=== PATIENT | male | born 2000 | race Caucasian/White ===

== ENCOUNTER 2018-01-13 20:57 | Inpatient (IN) | payer OTHER, MEDICAID ==
[~2018-01-13] VITALS: Ht 165.1 cm; Wt 57.2 kg
[~2018-01-13 20:57] MED LIST: GLYCOPYRROLATE 1 MG/5 ML SYRINGE IV PUSH ONE; LACTATED RINGER'S 1000 ML INJ 1,000 ML IV ONE; LIDOCAINE HCL 1% PF 5 ML SYRINGE OTHER ONE; NEOSTIGMINE 5 MG/5 ML SYRINGE IV PUSH ONE; ONDANSETRON HCL 4 MG/2 ML VIAL IV ONE; PROPOFOL 200 MG/20 ML AMP IV ONE; ROCURONIUM INJ 50 MG/5 ML SYRINGE IV PUSH ONE; SUCCINYLCHOLINE CHLORIDE 200 MG/10 ML VIAL IV ONE; ceFAZolin INJ 1,000 MG VIAL IV ONE
[2018-01-13 21:06] VITALS: O2SAT 99
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
[2018-01-13] MEDS ORDERED: IOHEXOL 350 MG/ML 10 ML VIAL (for RAD DIAG) IVCONTRAST ONE (21:36)
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
[2018-01-13] MEDS ORDERED: POTASSIUM CHLOR 20 MEQ PREMIX 100 ML IV SCH (21:45)
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
[2018-01-13 22:48] LABS: AUTOMATED NEUTROPHIL # 10.6 TH/MM3 (1.8-7.7); BASOPHIL % 0.2 % (0.0-2.0); EOSINOPHIL # 0.1 TH/MM3 (0-0.4); EOSINOPHIL % 0.4 % (0.0-4.0); HEMATOCRIT 40.9 % (39.0-51.0); HEMOGLOBIN 14.1 GM/DL (13.0-17.0); LYMPHOCYTE # 1.4 TH/MM3 (1.0-4.8); MEAN CELL VOLUME 85.8 FL (80.0-100.0); MEAN CORPUSCULAR HEMOGLOBIN 29.5 PG (27.0-34.0); MEAN CORPUSCULAR HGB CONC 34.4 % (32.0-36.0); MEAN PLATELET VOLUME 7.9 FL (7.0-11.0); MONO % 6.9 % (0.0-8.0); MONOCYTE # 0.9 TH/MM3 (0-0.9); NEUT % 81.5 % (16.0-70.0); PLATELET COUNT 202 TH/MM3 (150-450); RED BLOOD COUNT 4.77 MIL/MM3 (4.50-5.90); RED CELL DISTRIBUTION WIDTH 12.9 % (11.6-17.2)
[2018-01-13 23:13] LABS: INTERNATIONAL NORMALIZED RATIO 1.2 RATIO; PROTHROMBIN TIME - PATIENT 12.4 SEC (9.8-11.6)
[2018-01-13 23:31] LABS: BICARBONATE 24.9 MEQ/L (21.0-32.0); CALCIUM 7.7 MG/DL (8.5-10.1); CREATININE 0.85 MG/DL (0.60-1.30)
[2018-01-14] VITALS (11 sets, daily range): BP systolic 120–143; BP diastolic 70–82; PULSE 108–122; RESP 16–25; TEMP 99.1–100.8; O2SAT 94–100
[2018-01-14] MEDS ORDERED: MISCELLANEOUS NURSING INFORMATION XX SCH (00:15)
[2018-01-14] MEDS ORDERED: CHLORHEXIDINE GLUCONATE 2 % 1 PACK (2 CLOTHS) TOP PRN (00:15)
[2018-01-14] MEDS ORDERED: DO NOT ADM ANY ANTICOAGULANT DRUGS PRN (00:31)
[2018-01-14] MEDS: SODIUM CHLOR 0.9% 1000 ML INJ 1,000 ML IV SCH ×3 (00:35→20:52)
[2018-01-14 01:13] LABS: AUTOMATED NEUTROPHIL # 11.6 TH/MM3 (1.8-7.7); BASOPHIL % 0.1 % (0.0-2.0); HEMOGLOBIN 13.7 GM/DL (13.0-17.0); LYMPH % 3.6 % (9.0-44.0); LYMPHOCYTE # 0.5 TH/MM3 (1.0-4.8); MEAN CELL VOLUME 85.9 FL (80.0-100.0); MEAN CORPUSCULAR HEMOGLOBIN 28.8 PG (27.0-34.0); MEAN CORPUSCULAR HGB CONC 33.6 % (32.0-36.0); MEAN PLATELET VOLUME 7.2 FL (7.0-11.0); MONO % 6.4 % (0.0-8.0); MONOCYTE # 0.8 TH/MM3 (0-0.9); NEUT % 89.9 % (16.0-70.0); PLATELET COUNT 173 TH/MM3 (150-450); RED BLOOD COUNT 4.77 MIL/MM3 (4.50-5.90); RED CELL DISTRIBUTION WIDTH 12.9 % (11.6-17.2); WHITE BLOOD COUNT 12.9 TH/MM3 (4.0-11.0)
[2018-01-14] MEDS ORDERED: *morphine SULFATE 10 MG/ML PERIprocedure ONLY ONE (01:23)
[2018-01-14 01:26] LABS: BICARBONATE 26.2 MEQ/L (21.0-32.0); CALCIUM 7.9 MG/DL (8.5-10.1); CREATININE 0.88 MG/DL (0.60-1.30)
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
[2018-01-14] MEDS: CHLORHEXIDINE GLUCONATE 2 % 1 PACK (2 CLOTHS) TOP SCH ×2 (04:00→23:53)
[2018-01-14] MEDS ORDERED: MIDAZOLAM HCL 2 MG/2 ML VIAL ONE (05:28)
[2018-01-14] MEDS: DOCUSATE SODIUM 50 MG/SENNA 8.6 MG TAB PO SCH ×2 (08:16→20:55)
[2018-01-14] MEDS: FAMOTIDINE 20 MG/2 ML VIAL IV PUSH SCH ×2 (08:16→20:44)
[2018-01-14] MEDS ORDERED: oxyCODONE/ACETAMINOPHEN 5 MG/325 MG TAB PO PRN (09:30)
[2018-01-14] MEDS: MORPHINE SULFATE 2 MG/ML INJ IV PUSH PRN ×4 (09:54→20:44)
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
[2018-01-15] VITALS (7 sets, daily range): BP systolic 126–145; BP diastolic 76–87; PULSE 89–117; RESP 17–18; TEMP 97.3–100.6; O2SAT 96–100
[2018-01-15] MEDS: MORPHINE SULFATE 2 MG/ML INJ IV PUSH PRN ×3 (03:40→13:16)
[2018-01-15 04:37] LABS: AUTOMATED NEUTROPHIL # 8.1 TH/MM3 (1.8-7.7); BASOPHIL % 0.3 % (0.0-2.0); EOSINOPHIL % 0.3 % (0.0-4.0); HEMATOCRIT 39.3 % (39.0-51.0); HEMOGLOBIN 13.7 GM/DL (13.0-17.0); LYMPH % 8.7 % (9.0-44.0); LYMPHOCYTE # 0.9 TH/MM3 (1.0-4.8); MEAN CELL VOLUME 84.6 FL (80.0-100.0); MEAN CORPUSCULAR HEMOGLOBIN 29.6 PG (27.0-34.0); MEAN CORPUSCULAR HGB CONC 34.9 % (32.0-36.0); MEAN PLATELET VOLUME 7.8 FL (7.0-11.0); MONO % 8.7 % (0.0-8.0); MONOCYTE # 0.9 TH/MM3 (0-0.9); PLATELET COUNT 169 TH/MM3 (150-450); RED BLOOD COUNT 4.64 MIL/MM3 (4.50-5.90); RED CELL DISTRIBUTION WIDTH 12.3 % (11.6-17.2); WHITE BLOOD COUNT 9.9 TH/MM3 (4.0-11.0)
[2018-01-15 04:57] LABS: BICARBONATE 24.8 MEQ/L (21.0-32.0); CALCIUM 8.2 MG/DL (8.5-10.1); CREATININE 0.74 MG/DL (0.60-1.30)
[2018-01-15] MEDS ORDERED: ceFAZolin 1,000 MG/NS 100 ML IV ONE ×2 (08:00)
[2018-01-15] MEDS: FAMOTIDINE 20 MG/2 ML VIAL IV PUSH SCH ×2 (08:39→20:59)
[2018-01-15] MEDS: SODIUM CHLOR 0.9% 1000 ML INJ 1,000 ML IV SCH ×2 (08:39→17:53)
[2018-01-15] MEDS: DOCUSATE SODIUM 50 MG/SENNA 8.6 MG TAB PO SCH ×2 (08:44→20:58)
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
[2018-01-15] MEDS: ENOXAPARIN SODIUM 40 MG/0.4 ML SYRINGE SQ SCH (15:54)
[2018-01-15] MEDS: oxyCODONE/ACETAMINOPHEN 7.5 MG/325 MG TAB PO PRN (17:52)
[2018-01-16] VITALS (7 sets, daily range): BP systolic 116–139; BP diastolic 64–83; PULSE 81–100; RESP 15–18; TEMP 98.3–100.1; O2SAT 98–99
[2018-01-16] MEDS: oxyCODONE/ACETAMINOPHEN 7.5 MG/325 MG TAB PO PRN ×4 (03:43→21:49)
[2018-01-16] MEDS: SODIUM CHLOR 0.9% 1000 ML INJ 1,000 ML IV SCH ×3 (05:01→23:14)
[2018-01-16] MEDS: FAMOTIDINE 20 MG/2 ML VIAL IV PUSH SCH (09:13)
[2018-01-16] MEDS: DOCUSATE SODIUM 50 MG/SENNA 8.6 MG TAB PO SCH ×2 (09:13→20:50)
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
[2018-01-16] MEDS: ENOXAPARIN SODIUM 40 MG/0.4 ML SYRINGE SQ SCH (14:51)
[2018-01-16] MEDS: FAMOTIDINE 20 MG TAB PO SCH (20:50)
[2018-01-17 04:10] VITALS: BP 133/81; PULSE 85; RESP 15; TEMP 98.6; O2SAT 99
[2018-01-17 04:13] LABS: AUTOMATED NEUTROPHIL # 2.9 TH/MM3 (1.8-7.7); BASOPHIL % 0.4 % (0.0-2.0); EOSINOPHIL # 0.2 TH/MM3 (0-0.4); EOSINOPHIL % 4.3 % (0.0-4.0); HEMATOCRIT 33.4 % (39.0-51.0); LYMPH % 20.6 % (9.0-44.0); LYMPHOCYTE # 0.9 TH/MM3 (1.0-4.8); MEAN CELL VOLUME 83.5 FL (80.0-100.0); MEAN CORPUSCULAR HEMOGLOBIN 30.1 PG (27.0-34.0); MEAN PLATELET VOLUME 7.1 FL (7.0-11.0); MONO % 10.7 % (0.0-8.0); MONOCYTE # 0.5 TH/MM3 (0-0.9); PLATELET COUNT 173 TH/MM3 (150-450); RED CELL DISTRIBUTION WIDTH 12.4 % (11.6-17.2); WHITE BLOOD COUNT 4.5 TH/MM3 (4.0-11.0)
[2018-01-17 04:27] LABS: BICARBONATE 28.6 MEQ/L (21.0-32.0); CALCIUM 8.2 MG/DL (8.5-10.1); CREATININE 0.54 MG/DL (0.60-1.30)
[2018-01-17 07:31] VITALS: BP 133/82; PULSE 93; RESP 18; TEMP 99.9; O2SAT 100
[2018-01-17] MEDS: FAMOTIDINE 20 MG TAB PO SCH ×2 (08:43→22:08)
[2018-01-17] MEDS: oxyCODONE/ACETAMINOPHEN 7.5 MG/325 MG TAB PO PRN ×3 (08:43→22:15)
[2018-01-17] MEDS: DOCUSATE SODIUM 50 MG/SENNA 8.6 MG TAB PO SCH ×2 (08:43→22:08)
[2018-01-17 11:41] VITALS: BP 121/82; PULSE 100; RESP 18; TEMP 98.5; O2SAT 97
[2018-01-17] MEDS: ENOXAPARIN SODIUM 40 MG/0.4 ML SYRINGE SQ SCH (12:44)
[2018-01-17] MEDS ORDERED: ONDANSETRON HCL 4 MG/2 ML VIAL IV PUSH PRN (13:30)
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
[2018-01-17 16:00] VITALS: BP 140/99; PULSE 100; RESP 18; TEMP 96.6; O2SAT 98
[2018-01-17] MEDS ORDERED: PERI PO (19:20)
[2018-01-17] MEDS ORDERED: MAGN30S PO (19:20)
[2018-01-17 21:10] VITALS: BP 134/79; PULSE 84; RESP 15; TEMP 97.5; O2SAT 98
[2018-01-17] MEDS: MAGNESIUM HYDROXIDE SUSP 30 ML CUP PO SCH (22:08)
[2018-01-17] MEDS: SODIUM CHLOR 0.9% 1000 ML INJ 1,000 ML IV SCH (22:17)
[2018-01-18 00:50] VITALS: BP 126/75; PULSE 81; RESP 15; TEMP 97.1; O2SAT 98
[2018-01-18] MEDS: SODIUM CHLOR 0.9% 1000 ML INJ 1,000 ML IV SCH ×2 (07:26→11:28)
[2018-01-18] MEDS: MAGNESIUM HYDROXIDE SUSP 30 ML CUP PO SCH ×2 (07:43→20:39)
[2018-01-18] MEDS: DOCUSATE SODIUM 50 MG/SENNA 8.6 MG TAB PO SCH ×2 (07:43→20:40)
[2018-01-18 08:00] VITALS: BP 134/75; PULSE 74; RESP 20; TEMP 96.4; O2SAT 100
[2018-01-18] MEDS: FAMOTIDINE 20 MG TAB PO SCH ×2 (08:28→20:39)
[2018-01-18] MEDS: oxyCODONE/ACETAMINOPHEN 7.5 MG/325 MG TAB PO PRN ×4 (08:29→22:21)
[2018-01-18] MEDS: ENOXAPARIN SODIUM 40 MG/0.4 ML SYRINGE SQ SCH (11:52)
[2018-01-18 12:00] VITALS: BP 122/69; PULSE 72; RESP 18; TEMP 96.7; O2SAT 99
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
[2018-01-18 16:00] VITALS: BP 129/69; PULSE 65; RESP 18; TEMP 96.1; O2SAT 100
[2018-01-18 20:00] VITALS: BP 107/68; PULSE 72; RESP 20; TEMP 97.7; O2SAT 100
[2018-01-19] VITALS: BP 122/64; PULSE 56; RESP 20; TEMP 97.4; O2SAT 98
[2018-01-19] MEDS: oxyCODONE/ACETAMINOPHEN 7.5 MG/325 MG TAB PO PRN ×2 (05:18→12:06)
[2018-01-19 08:00] VITALS: BP 121/76; PULSE 74; RESP 18; TEMP 96.1; O2SAT 100
[2018-01-19] MEDS: MAGNESIUM HYDROXIDE SUSP 30 ML CUP PO SCH (08:11)
[2018-01-19] MEDS: DOCUSATE SODIUM 50 MG/SENNA 8.6 MG TAB PO SCH (08:11)
[2018-01-19] MEDS: FAMOTIDINE 20 MG TAB PO SCH (08:11)
[2018-01-19 12:00] VITALS: BP 116/65; PULSE 76; RESP 18; TEMP 98.1; O2SAT 96
[2018-01-19] MEDS: ENOXAPARIN SODIUM 40 MG/0.4 ML SYRINGE SQ SCH (12:06)
[2018-01-19] MEDS ORDERED: OXYC1TAB63 PO (12:56)
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
== END 2018-01-19 14:52 | disposition home or self-care (01) | DRG 330 ==
LOC: NEPI 20:57 → EDBD 21:42 → NEDA 21:42 → N03A 01-14 01:59 → N06B 01-14 12:20
PROVIDERS: ADMIT Surgery Trauma Surgery; ATTEND Surgery Trauma Surgery
PROC: 0WJP0ZZ Inspection of Gastrointestinal Tract, Open Approach (ICD-10-PCS; 2018-01-13)
PROC: 0DB80ZZ Excision of Small Intestine, Open Approach (ICD-10-PCS; principal; 2018-01-13 22:35)
DX: S36.498A Other injury of other part of small intestine, initial encounter (principal); S36.520A Contusion of ascending [right] colon, initial encounter; S36.892A Contusion of other intra-abdominal organs, initial encounter; E87.6 Hypokalemia; S36.428A Contusion of other part of small intestine, initial encounter; R11.0 Nausea; R50.9 Fever, unspecified; V43.62XA Car passenger injured in collision with other type car in traffic accident, initial encounter; Y92.410 Unspecified street and highway as the place of occurrence of the external cause
CPT/HCPCS: 70450; 70486; 71045; 71260; 72125; 72132; 72170; 74177; 80048; 83735; 85025; 85610; 85730; 86850; 86900; 86901; 86920; 87641; 88305; 88307; 94150; 94667; 94668; 99285; 99291; G0390; J0330; J0690; J1650; J2250; J2270; J2405; J2710; J3010; J7030; J7120; Q9967